=== PATIENT | male | born 1960 | race Caucasian/White ===

== ENCOUNTER 2020-10-10 07:30 | Day surgery (SDC) | payer MEDICARE, MEDICAID ==
[2020-10-10] MEDS ORDERED: fentaNYL 100 MCG/2 ML SDV ONE (07:41)
[2020-10-10] MEDS ORDERED: Propofol 200 MG/20 ML SDV ONE ×2 (07:41→09:25)
[2020-10-10] MEDS ORDERED: Midazolam 1 MG/ML 2 ML SDV ONE (07:41)
[2020-10-10] MEDS: Dextrose 5%-Lactated Ringers 1,000 ML IV SCH (08:03)
[2020-10-10 11:19] VITALS: BP 142/86; PULSE 82
--- NOTE | 2020-10-11 08:28 | OR ---
DATE OF PROCEDURE: 10/10/2020 SURGEON: Goldy Eugene MD PREOPERATIVE DIAGNOSIS: Positive Cologuard examination. POSTOPERATIVE DIAGNOSIS: Positive Cologuard examination associated with 10 separate colorectal polyps. OPERATIVE PROCEDURE: 1. A flexible colonoscopy with polypectomy x10. 2. Injection of Bethany ink at the polypectomy sites located at 28 and 10 cm from dentate line. ANESTHESIA: IV sedation. INDICATION FOR PROCEDURE: A 60-year-old male presenting after a positive Cologuard examination for a followup colonoscopy. Plan is to proceed with a flexible colonoscopy with polypectomies as indicated. Potential risks including bleeding and perforation were discussed, and the patient wishes to proceed. DETAILS OF PROCEDURE: The patient was taken to the operating room and placed in a left lateral decubitus position. IV sedation was administered, after which the initial digital rectal exam was performed. It was unremarkable. Colonoscope was then eventually passed to the level of the cecum. There was a good prep overall with only a small amount of liquid stool present. Overall, a total of 10 polyps were identified. One was located within the cecum and was fairly small and was suctioned and sent for . Second one in the ascending colon was somewhat larger measuring in the 1 to 2 cm range and this was excised by means of polypectomy snare and then removed with a basket. The scope was then passed back up, and 2 smaller polyps, one in the hepatic flexure, one in the transverse colon were each excised and suctioned into the trap in separate containers as well. The patient had a larger splenic flexure polyp, again measuring between 1 or 2 cm, which was removed by means of cautery snare technique and then taken down with a basket. In the mid sigmoid colon between 28 and 24 cm, there were 4 small polyps. These were all evacuated by means of the cautery snare technique and collected together and sent as a single specimen as they were essentially side by side. A somewhat larger polyp was then also seen at 25 cm. This was excised with a cautery snare technique and brought out with a basket and then finally a final larger polyp at 10 cm i.e. in the mid to upper rectum was removed with cautery snare technique and also removed with a basket. At that point, no further problems were noted. The summary of the pathologic specimens was copied and will be placed as part of the formal chart. The left colon appeared to have the most problematic areas in terms of large polyps, so little more proximal end of this region, i.e. at 25 cm was marked with Bethany ink and injected in the submucosa and then the larger of the lower polyps, that is the rectal polyp was also marked at the polypectomy site, was then injected in the submucosa so as to guide subsequent resection, should at least come back showing malignancy. If all of these specimens come back as premalignant rather than malignant, the patient should undergo a repeat colonoscopy in 1 year given the extensiveness of the polyps seen on today's exam. We will contact the patient regarding pathologic findings and appropriate next steps. Goldy Eugene MD /[id number]
== END 2020-10-10 11:15 | disposition home or self-care (01) ==
LOC: JP.SDS 07:30
PROVIDERS: ATTEND Surgery
DX: D12.0 Benign neoplasm of cecum (principal); D12.2 Benign neoplasm of ascending colon; D12.3 Benign neoplasm of transverse colon; D12.5 Benign neoplasm of sigmoid colon; D12.8 Benign neoplasm of rectum; J44.9 Chronic obstructive pulmonary disease, unspecified; F17.200 Nicotine dependence, unspecified, uncomplicated; E66.9 Obesity, unspecified; Z79.899 Other long term (current) drug therapy; Z68.33 Body mass index [BMI] 33.0-33.9, adult
CPT/HCPCS: J2250; J2704; J3010; J7121

== ENCOUNTER 2021-03-29 15:25 | Emergency (ER) | payer MEDICARE, MEDICAID ==
[2021-03-29 16:03] VITALS: BP 167/94; PULSE 80
[2021-03-29] MEDS ORDERED: Dicyclomine 10 MG Cap PO ONE (16:17)
[2021-03-29] MEDS ORDERED: Acetaminophen 500 MG Tab PO ONE (16:18)
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
[2021-03-29] MEDS ORDERED: Sodium Chloride 0.9% 10 ML Syringe FLUSH PRN (17:30)
[2021-03-29] MEDS ORDERED: Iopamidol 612 MG/ML 150 ML Bottle IV SCH (17:45)
[2021-03-29] MEDS: Sodium Chloride 0.9% 10 ML Syringe FLUSH ONE ×2 (17:46→17:58)
[2021-03-29] MEDS ORDERED: Ciprofloxacin in D5W 400 MG in Premix Bag 1 BAG IV ONE ×2 (18:14)
[2021-03-29] MEDS ORDERED: metroNIDAZOLE/Normal Saline 500 MG in Premix Bag 1 BAG IV ONE (18:14)
[2021-03-29] MEDS ORDERED: HYDROmorphone 0.5 MG/0.5 ML Syringe IVPUSH ONE (18:15)
--- NOTE | 2021-03-29 18:51 | CRLCT ---
For Patients: As a result of the Century Cures Act, medical imaging exams and procedure reports are released immediately into your electronic medical record. You may view this report before your referring provider. If you have questions, please contact your health care provider. Indication: Lower abdominal pain Technique: Contrast enhanced CT abdomen and pelvis with 136 mL Isovue 350 Comparison: No comparison Findings: The heart size is normal. There is no pericardial effusion no pleural effusion. Basilar atelectasis. Fatty liver. Gallbladder slightly distended. Pancreas adrenal glands spleen appears unremarkable. Symmetric enhancement of both kidneys too small to characterize low-density lesion in the right kidney. No hydronephrosis. Small fat containing umbilical hernia. Diverticulosis. Bowel wall thickening and pericolonic inflammatory change about the sigmoid colon. Fat containing inguinal hernias. Normal appendix. Urinary bladder is incompletely distended with wall thickening enlarged prostate gland. No suspicious bony lesions. Impression: 1. Sigmoid diverticulitis. Follow-up endoluminal exam would be recommended to exclude underlying malignancy following resolution of the patient`s symptom. 2. Enlarged prostate gland. Bladder wall thickening in nondistended bladder. 3. Fatty liver. Please note that all CT scans at this facility use dose modulation, iterative reconstruction, and/or weight-based dosing when appropriate to reduce radiation dose to as low as reasonably achievable. Dictated by Kamila Adkins MD @ 03/29/2021 6:49:[address] Kamila Adkins @ Mar 29 2021 6:49PM
== END 2021-03-29 18:47 | disposition home or self-care (01) ==
LOC: JP.ED 15:25
DX: K57.32 Diverticulitis of large intestine without perforation or abscess without bleeding (principal); Z72.0 Tobacco use
CPT/HCPCS: 36415; 74177; 80053; 85027; 86140; 99284; A9270; Q9967